=== PATIENT | female | born 1985 | race Hispanic/Latino ===

== ENCOUNTER 2017-03-09 13:26 | Emergency (ER) | payer BC ==
[2017-03-09 13:39] VITALS: RESP 18; TEMP 97.8; O2SAT 100
[2017-03-09] MEDS ORDERED: Sodium Chloride 0.9% 1,000 ML IV ONE (13:49)
[2017-03-09] MEDS ORDERED: Dextrose 5%/0.45% NS 1,000 ML IV ONE ×2 (13:49→13:56)
[2017-03-09] MEDS ORDERED: Sodium Chloride 0.9% 1,000 ML ONE (13:56)
[2017-03-09 14:04] LABS: BASO % 0.2 % (0.0-2.0); EOS # 0.1 K/uL (0.0-0.7); EOS % 0.8 % (0.0-4.0); HEMOGLOBIN 13.2 g/dL (11.0-16.0); LYMPH # 1.3 K/uL (1.0-4.3); LYMPH % 11.1 % (20.0-40.0); MEAN CELL VOLUME 87.8 fL (81.0-99.0); MEAN CORPUSCULAR HEMOGLOBIN 29.2 pg (27.0-31.0); MEAN CORPUSCULAR HGB CONC 33.2 g/dL (33.0-37.0); MEAN PLATELET VOLUME 7.7 fL (7.2-11.7); MONO # 0.7 K/uL (0.0-0.8); MONO % 5.8 % (0.0-10.0); NEUT # 9.8 K/uL (1.8-7.0); NEUT % 82.1 % (50.0-75.0); NRBC % 0.1 % (0.0-2.0); RBC 4.52 Mil/uL (3.80-5.20); WHITE BLOOD COUNT 11.9 K/uL (4.8-10.8)
[2017-03-09 14:13] LABS: ALBUMIN 3.7 g/dL (3.5-5.0)
[2017-03-09 14:15] LABS: GFR AFRICAN-AMERICAN > 60; GFR NON-AFRICAN AMERICAN > 60
[2017-03-09 14:16] LABS: ALB/GLOB RATIO 1.2 (1.0-2.1); ALT/SGPT 23 U/L (9-52); AST/SGOT 20 U/L (14-36); BLOOD UREA NITROGEN 12 mg/dL (7-17); CALCIUM 8.7 mg/dl (8.6-10.4)
--- NOTE | 2017-03-09 14:25 | C.PDOC ---
History Of Present Illness 31 y/o female presents to ED with complaints of cramping lower abdominal pain with associated diarrhea and nausea. Patient states "she can't keep anything down". Patient denies vaginal bleeding, vomiting, fever, chills, sob, chest pain or any other complaints at this time. Time Seen by Provider: 03/09/17 13:35 Chief Complaint (Nursing): Abdominal Pain History Per: Patient History/Exam Limitations: no limitations Onset/Duration Of Symptoms: Days Current Symptoms Are (Timing): Still Present Location Of Pain/Discomfort: Suprapubic Quality Of Discomfort: Cramping Associated Symptoms: Nausea, Diarrhea Past Medical History Reviewed: Historical Data, Nursing Documentation, Vital Signs Vital Signs: Last Vital Signs Temp 97.8 F 03/09/17 13:30 Pulse 88 03/09/17 13:30 Resp 18 03/09/17 13:30 BP 119/75 03/09/17 13:30 Pulse Ox 100 03/09/17 14:28 Family History: States: No Known Family Hx, Hypertension - Social History Hx Alcohol Use: No Hx Substance Use: No Review Of Systems Except As Marked, All Systems Reviewed And Found Negative. Constitutional: Negative for: Fever, Chills Cardiovascular: Negative for: Chest Pain Respiratory: Negative for: Shortness of Breath Gastrointestinal: Positive for: Nausea, Abdominal Pain, Diarrhea Genitourinary: Negative for: Vaginal Bleeding Physical Exam - Physical Exam Appears: Non-toxic, No Acute Distress Skin: Normal Color, Warm Head: Atraumatic, Normacephalic Eye(s): bilateral: Normal Inspection Ear(s): Bilateral: Normal Oral Mucosa: Moist Throat: Normal, No Erythema Cardiovascular: Rhythm Regular, No Murmur Respiratory: Normal Breath Sounds, No Rales, No Rhonchi, No Wheezing Gastrointestinal/Abdominal: Soft, No Tenderness, No Guarding, No Rebound Neurological/Psych: Oriented x3 ED Course And Treatment - Laboratory Results Result Diagrams: 03/09/17 13:51 03/09/17 13:51 O2 Sat by Pulse Oximetry: 100 (RA) Pulse Ox Interpretation: Normal Medical Decision Making Medical Decision Making: Plan: * Ultrasound of abdomen * blood work * Zofran * Iv Fluids Disposition Counseled Patient/Family Regarding: Studies Performed, Diagnosis, Need For Followup - Disposition Disposition: HOME/ ROUTINE Disposition Time: 16:21 Condition: STABLE Additional Instructions: Follow up with your doctor. Return to the Emergency Department with any further concerns. Prescriptions: Ondansetron ODT [Zofran ODT] 1 odt PO BID PRN #6 odt PRN Reason: Nausea/Vomiting Instructions: Hyperemesis Gravidarum (ED) Forms: General Discharge Instructions, Work Excuse - POA Present On Arrival: None - Clinical Impression Clinical Impression: Hyperemesis - Scribe Statement The provider has reviewed the documentation as recorded by the Bree Choe All medical record entries made by the Bree were at my direction and personally dictated by me. I have reviewed the chart and agree that the record accurately reflects my personal performance of the history, physical exam, medical decision making, and the department course for this patient. I have also personally directed, reviewed, and agree with the discharge instructions and disposition.
--- NOTE | 2017-03-09 14:58 | US ---
PROCEDURE: OB Pelvic Ultrasound HISTORY: and left adnexal pain ; LMP 01/11/2017 COMPARISON: None available. FINDINGS: UTERUS: Gestational sac: Single intrauterine gestation. 3.59 cm 8 weeks 5 days. Yolk sac present 0.36 cm pole: [place]-rump length 1.79. Eight weeks 2 days Heart rate: 161 bpm. age (Ultrasound estimated): 8 weeks 4 days +/-0 weeks 4 days Felisa-gestational hemorrhage: None. Date of delivery (Ultrasound estimated) : 10/15/2017. Estimated date of delivery by LMP 10/18/2017 Uterus measures 7.7 cm. Normal in size, and retroflexed CERVIX: 3.1 cm long and closed. No cervical abnormality seen. RIGHT OVARY: Measures 3.9 x 2.2 x 3.6 cm. No mass lesion. Normal flow. LEFT OVARY: Measures 3.3 x 2.1 x 2 point cm. No solid mass. Normal flow. FREE FLUID: None. OTHER FINDINGS: None. IMPRESSION: Single intrauterine gestation with cardiac activity. Ultrasound parameters 8 weeks 4 days +/-0 weeks 4 days. Estimated date of delivery by ultrasound 10/15/2017 No adnexal pathology noted
[2017-03-09 17:06] VITALS: BP 112/72; PULSE 82
== END 2017-03-09 17:06 | disposition home or self-care (01) ==
LOC: C.ER 13:26
DX: O21.0 Mild hyperemesis gravidarum (principal); Z3A.08 8 weeks gestation of pregnancy
CPT/HCPCS: 76801; 80053; 84702; 85025; 96361; 96374; 99284; J2405; J7040; J7042